=== PATIENT | female | born 1995 | race American Indian/Alaskan Native ===

== ENCOUNTER 2020-11-07 07:56 | Outpatient (CLI) | payer MEDICAID ==
[2020-11-07 08:23] VITALS: BP 128/87
[2020-11-07] MEDS ORDERED: LACTATED RINGERS 1,000 ML ONE (08:56)
[2020-11-07] MEDS ORDERED: LACTATED RINGERS 1000 ML IV SOLN IV SCH (09:30)
--- NOTE | 2020-11-07 12:57 | Event Note ---
Date: 11/07/20 pt reexamined after walking . no bleeding or leaking noted. T CAT 1. labor precautions reviewed. Pt offered po medication for rest but pt declined. Plan discussed for d/c home. encouraged to call office for any questions or concerned.
== END 2020-11-07 12:55 | disposition home or self-care (01) ==
LOC: TRG 07:56 → APU 07:58 → TRG 12:55
PROVIDERS: ATTEND Obstetrics & Gynecology
DX: O62.9 Abnormality of forces of labor, unspecified (principal); Z3A.39 39 weeks gestation of pregnancy
CPT/HCPCS: 59025; 96360; 96361; J7120